=== PATIENT | female | born 1940 | race Caucasian/White ===

== ENCOUNTER 2017-03-04 15:34 | Inpatient (IN) | payer MEDICARE, MEDICAID ==
[~2017-03-04] VITALS: Ht 162.6 cm; Wt 109.0 kg
[2017-03-04] MEDS ORDERED: TRAZ-136 PO ×2 (15:59→18:21)
[2017-03-04] MEDS ORDERED: ATEN50TA2 PO ×2 (15:59→18:21)
[2017-03-04] MEDS ORDERED: TRAM50TA2 PO ×2 (15:59→18:21)
[2017-03-04] MEDS ORDERED: TRIA37.53 PO (15:59)
[2017-03-04] MEDS ORDERED: ALPR0.25 PO ×2 (15:59→18:21)
[2017-03-04] MEDS ORDERED: CYMB1CAP5 PO (15:59)
[2017-03-04] MEDS ORDERED: NITR0.4S14 PO (15:59)
[2017-03-04] MEDS ORDERED: CELE1CAP9 PO ×2 (16:00→18:21)
[2017-03-04] MEDS ORDERED: DULO1CAP3 PO (16:00)
[2017-03-04 17:22] LABS: MEAN CORPUSCULAR HEMOGLOBIN 27.4 pg (27.0-33.0); MEAN CORPUSCULAR HGB CONC 32.9 g/dl (32.0-36.5); MEAN CORPUSCULAR VOLUME 83.5 fl (80.0-96.0); RED CELL DISTRIBUTION WIDTH 13.7 % (11.5-14.5); WHITE BLOOD COUNT 7.4 K/mm3 (4.0-10.0)
[2017-03-04 17:51] LABS: METHADONE URINE NEGATIVE (NEGATIVE)
[2017-03-04 18:00] LABS: ALBUMIN 3.6 GM/DL (3.2-5.2); ALBUMIN/GLOBULIN RATIO 0.97 (1.00-1.93); ALKALINE PHOSPHATASE 83 U/L (45-117); ALT/SGPT 24 U/L (12-78); ANION GAP 7 MEQ/L (8-16); AST/SGOT 18 U/L (15-37); BILIRUBIN,DIRECT < 0.1 MG/DL (0.0-0.2); BILIRUBIN,TOTAL 0.3 MG/DL (0.2-1.0); BLOOD UREA NITROGEN 23 MG/DL (7-18); CALCIUM LEVEL 9.3 MG/DL (8.8-10.2); CARBON DIOXIDE LEVEL 29 MEQ/L (21-32); CHLORIDE LEVEL 104 MEQ/L (98-107); CREATININE FOR GFR 1.32 MG/DL (0.55-1.02); GLOMERULAR FILTRATION RATE 41.8 (>39); GLUCOSE, FASTING 107 MG/DL (83-110); POTASSIUM SERUM 4.8 MEQ/L (3.5-5.1); SODIUM LEVEL 140 MEQ/L (136-145); TOTAL PROTEIN 7.3 GM/DL (6.4-8.2)
[2017-03-04] MEDS ORDERED: TYLE500T78 PO (18:21)
[2017-03-04] MEDS ORDERED: [UNRECOGNIZED DRUG - OTHER] (18:21)
[2017-03-04] MEDS ORDERED: AZO95TAB PO (18:21)
[2017-03-04] MEDS ORDERED: CYMB60CA3 PO (18:21)
[2017-03-04] MEDS ORDERED: NITR4TASL SL (18:21)
[2017-03-04] MEDS ORDERED: CLOTR1CR TOP (18:21)
[2017-03-04] MEDS ORDERED: MAXZTAB PO (18:21)
[2017-03-04] MEDS ORDERED: ASPI1TAB PO (18:21)
[2017-03-04] MEDS ORDERED: DULO30CA PO (18:21)
[2017-03-04 20:18] VITALS: BP 162/78
[2017-03-04] MEDS ORDERED: MAGN500T5 PO (20:18)
[2017-03-04] MEDS ORDERED: CelecoXIB (CeleBREX) 100 MG CAP PO SCH (21:00)
[2017-03-04] MEDS ORDERED: LOTRISONE CREAM 15 GM (BETAMETH/CLOTRIMAZOLE) TOP PRN (21:15)
[2017-03-04] MEDS ORDERED: MAALOX 30 ML SUSP *UDC PO PRN (21:15)
[2017-03-04] MEDS ORDERED: NITROGLYCERIN 0.4 MG SUBL TABLET SL PRN (21:15)
[2017-03-04] MEDS ORDERED: MOM 30ML SUSPENSION UDC PO PRN (21:15)
[2017-03-04] MEDS ORDERED: DULoxetine 30 MG CAP (CYMBALTA) PO PRN (21:15)
[2017-03-04] MEDS ORDERED: traZODone 50 MG TAB PO PRN (21:15)
[2017-03-04] MEDS ORDERED: CLOTRIMAZOLE 1% TOPICAL CREAM 30GM TOP SCH (22:00)
[2017-03-04] MEDS: MAGNESIUM OXIDE 400 MG TAB (MAG-OX) PO SCH (22:35)
[2017-03-04] MEDS: DULoxetine 30 MG CAP (CYMBALTA) PO SCH (22:35)
[2017-03-04] MEDS: ALPRAZolam 0.25 MG TAB PO PRN (22:35)
[2017-03-04] MEDS: ATENOLOL 50 MG TAB PO SCH (22:36)
[2017-03-04] MEDS: traZODone 100 MG TAB PO SCH (22:36)
[2017-03-04] MEDS: MAXZIDE 75/50 TABLET PO SCH (22:39)
[2017-03-05] MEDS: traMADol 50 MG TAB PO PRN ×3 (01:06→21:53)
[2017-03-05] MEDS: ACETAMINOPHEN 500 MG TAB PO PRN ×3 (01:06→21:52)
[2017-03-05 06:31] VITALS: BP 134/82
[2017-03-05] MEDS: PHENAZOPYRIDINE 100 MG TAB PO PRN (07:02)
[2017-03-05 07:19] LABS: MEAN CORPUSCULAR VOLUME 81.7 fl (80.0-96.0); RED CELL DISTRIBUTION WIDTH 13.9 % (11.5-14.5); WHITE BLOOD COUNT 8.3 K/mm3 (4.0-10.0)
--- NOTE | 2017-03-05 07:55 | HPE ---
DATE OF ADMISSION: 03/04/2017 HISTORY OF THE PRESENT ILLNESS: Please refer to psychiatric history and evaluation for further details on this admission. This examination and history is intended for medical issues which may need treatment, followup, or consult on this 76-year-old female. ALLERGIES: CAFFEINE. PRIMARY CARE PROVIDER: Ann Marie Ac. SOCIAL HISTORY: She is . She does not drink alcohol. She does not smoke cigarettes. She does not use recreational drugs. PAST MEDICAL HISTORY: Anxiety, multijoint arthritis, restless legs, cystitis, hypertension. She had a cardiac catheterization, she states, showed only a slight blockage. PAST SURGICAL HISTORY: section, repair of vaginal-anal fistula. LABORATORY STUDIES: WBC 7.4, hemoglobin 12.5, hematocrit 38.1, platelets 37.1. Electrolytes normal. BUN and creatinine 23 and 1.32. Urine positive for benzodiazepines. HOME MEDICATIONS: - Tylenol 500 mg by mouth every 6 hours as needed for pain - alprazolam 0.25 mg by mouth four times a day as needed for anxiety - aspirin 81 mg by mouth daily - atenolol 50 mg by mouth nightly - clotrimazole - Lotrimin cream twice a day as needed for rash under breast, none currently - Cymbalta 60 mg by mouth nightly - triamterene hydrochlorothiazide, which is Maxzide-25; triamterene 37.5 one tablet by mouth nightly - Nitrostat 0.4 mg sublingual every 5 minutes times three as needed for chest pain - Tramadol 100 mg by mouth three times a day as needed for pain - trazodone 200 mg by mouth nightly - Celecoxib/Celebrex 200 mg by mouth nightly - magnesium oxide 500 mg by mouth nightly - Azo Tabs 190mg by mouth daily as needed for cystitis - Zicam Cold Remedy one nightly as needed for congestion REVIEW OF SYSTEMS: Ten-system review was done. Other than chronic pain, she had no medical complaints. PHYSICAL EXAMINATION: A 76-year-old cooperative female in no acute distress. Height 64 inches. Weight 110.4 kg. Body mass index (BMI) 41.8. Blood pressure 150/70, pulse 86, respirations 18, temperature 97.4. The patient is alert and oriented times three. Pupils are equal and reactive to light. Extraocular movements intact. Cornea and sclerae clear. Conjunctivae is normal. No facial asymmetry. Pharynx: Tongue and gums pink and moist. Tongue is midline. Neck is supple without lymphadenopathy. No thyromegaly. No goiter. Carotids 2+ without bruits. Chest is clear to auscultation without wheeze or retractions. Heart is regular. Abdomen benign. Bowel sounds are positive. Genital/Rectal: Not done. Extremities show equal strength, full range of motion. No cyanosis, clubbing or edema. Peripheral pulses equal and palpable bilaterally. Skin is warm and dry. IMPRESSION AND PLAN: Psychiatric plan per psychiatry. Multijoint arthritis. Continue tramadol and Tylenol for pain. Continue Azo for cystitis. Hypertension, stable. No acute medical issues. ADDENDUM: 03/05/2017 Her platelets were noted to be low at 27. Her aspirin and Celebrex will be held. We will recheck CBC. If it remains low, we will do a hematology referral.
[2017-03-05] MEDS: ALPRAZolam 0.25 MG TAB PO PRN ×2 (08:55→15:19)
--- NOTE | 2017-03-05 15:28 | MHHPE ---
DATE OF ADMISSION: 03/04/2017 LEGAL STATUS AT ADMISSION: Voluntary legal status. CHIEF COMPLAINT: "I have been feeling very depressed. I have not been like this in years." HISTORY OF THE PRESENT ILLNESS: A 76-year-old female with history of depression and bipolar type 2 disorder, admitted to our unit on a voluntary basis. According to the chart, the patient came to the emergency department to be evaluated for depression. The patient was making statements such as, "I'm trying to make it through." "I have not been like this in years." "I'm terrified of going back there again." The patient does not know any triggers for this severe and worsening depression other than her sister moved out of state, but the patient does not believe that this has been stressful. The patient says that she has been "walking nightmare." It's paralyzing and terrible." The patient's brother committed suicide when he was 28 . The patient reports low energy, dysphoria, being fearful with poor concentration and low self-esteem. During the interview, there is no evidence of psychotic symptoms. The patient says that she cannot sleep at nighttime, says that she falls asleep between sandhya and 8 o'clock. The patient reports a history of hypomania in which she felt self-confident, very creative, everything worked, she cannot see anything negative and kind of misses this hypomanic episode. The patient denies that these symptoms have caused any problems in the past and reports, "I kind of miss them. " The patient states that the depressive episodes are the worst. They can last for months and they impair her quality of life significantly. During the interview, there is no evidence of psychosis. No auditory or visual hallucinations or delusions. PSYCHIATRIC REVIEW OF SYMPTOMS: Depression and other mood disorder. The patient reports depression, insomnia, anhedonia, hopelessness, low energy, psychomotor retardation. SUBSTANCE USE DISORDER: The patient answers negative to each questioner. ANXIETY DISORDER: The patient has anxiety but denies panic episodes or agoraphobia. Patient denies obsessive-compulsive symptoms, such as washing hands repeatedly or checking things over and over. SOMATIZATION DISORDER: Screening for pain, conversion, gastrointestinal (GI) and sexual symptoms are negative. EATING DISORDER: Screening for dieting, use of laxatives, eating in binges is negative. DEMENTIA AND COGNITIVE DISORDER. Screening for short and long-term memory, orientation and general information are negative for cognitive disorder. PSYCHOTIC DISORDER: No evidence of delusions, paranoia, grandiosity or jew preoccupation. No hallucinations. No looseness of associations. PAST MEDICAL HISTORY: The patient states that she has been diagnosed with fibromyalgia, osteoarthritis, sinus headaches, interstitial cystitis, hypertension, angina and coronary artery disease. PAST PSYCHIATRIC HISTORY: Patient reports that she has been diagnosed with bipolar disorder and depression. FAMILY HISTORY: The patient reports that her mother's side of the family has tendency to suffer from mood disorder and has a brother who was diagnosed with schizophrenia who committed suicide at age 28. 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 PHYSICAL EXAM: As per physician regional administrative assistant. LABS AT ADMISSION: CBC is unremarkable except the finding of low platelet count of 37,000. CMP is unremarkable, except BUN of 23, creatinine of 1.32. Urine drug screen (UDS) was positive for benzodiazepines, rest negative. Blood alcohol level was negative. MENTAL STATUS EXAMINATION: The patient is dressed in [facility]. The patient is cooperative. Speech is soft and monotone, has fair eye contact. Mood is depressed and anxious. Affect is restricted. The patient is oriented to time, place, person and situation. Maintains attention and concentration fairly. Instant recall, recent and remote memory are fair. Thought processes are chronological and goal directed. The patient does not have auditory or visual hallucinations. The patient does not have paranoid, persecutory, somatic, grandiose or jew delusions. The patient denies suicidal or homicidal ideation. Judgment and insight are limited. DIAGNOSIS: AXIS I: Bipolar, type 2, depressive episode. AXIS II: Deferred. AXIS III: Fibromyalgia, hypertension, coronary artery disease, status post angina pectoris, osteoarthritis, sinus headaches, interstitial cystitis and peripheral neuropathy. PLAN: The patient was admitted on a 9.39 legal status. Complete history was obtained. With her permission, family will be contacted and database will be expanded. Her medication regimen will be reviewed and changed accordingly. She will be provided with protected environment. She will be treated with individual , group and milieu therapy. She will also receive supportive psychoeducation. Discharge planning will commence immediately. Length of stay will be between 7 and 10 days. Outpatient followup will be strongly recommended. The treatment plan will focus initially on depression and ineffective coping. MTDD
[2017-03-05 18:00] VITALS: BP 120/70
[2017-03-05] MEDS: traZODone 100 MG TAB PO SCH (21:51)
[2017-03-05] MEDS: MAXZIDE 75/50 TABLET PO SCH (21:52)
[2017-03-05] MEDS: MAGNESIUM OXIDE 400 MG TAB (MAG-OX) PO SCH (21:52)
[2017-03-05] MEDS: DULoxetine 30 MG CAP (CYMBALTA) PO SCH (21:52)
[2017-03-05] MEDS: ATENOLOL 50 MG TAB PO SCH (21:53)
[2017-03-05] MEDS: lamoTRIgine 25 MG TAB PO SCH (21:53)
[2017-03-06] MEDS: ALPRAZolam 0.25 MG TAB PO PRN ×3 (04:28→18:25)
[2017-03-06] MEDS: traMADol 50 MG TAB PO PRN ×2 (04:32→11:37)
[2017-03-06] MEDS: ACETAMINOPHEN 500 MG TAB PO PRN ×2 (04:38→11:36)
[2017-03-06 06:10] VITALS: BP 148/88
[2017-03-06] MEDS ORDERED: PREVNAR 13 VACCINE SYRINGE (CPT CODE:90670) IM ONE (09:00)
[2017-03-06] MEDS: PHENAZOPYRIDINE 100 MG TAB PO PRN (09:29)
--- NOTE | 2017-03-06 16:59 | IPN ---
DATE: 03/06/2017 A 76-year-old female with history of depression and bipolar type 2, who was admitted on voluntary basis for treatment of depression. SUBJECTIVE: "I feel betrayed." OBJECTIVE: The patient has changed her mind and she has written a request for discharge. The patient has been told that before discharge, we need to make sure that everything is in order and there are no concerning symptoms of depression or suicidal ideation in the context of being over the weekend. Her primary psychiatrist is not here and the team and social workers are not present. The patient is frustrated and somewhat angry because she has not been able to leave the hospital right away. I discussed the treatment with the patient this morning and tried to convince her to stay at least to achieve minimal benefit, but she has declined my offer. She is only focused on discharge. She wanted to be placed on Effexor and had her Cymbalta tapered down. I offered to do so, but she said that she prefers to wait to see Dr. Brooks. MENTAL STATUS EXAMINATION: The patient was difficult to evaluate today because she is focused on discharge issues only. She was frustrated and somewhat irritable. Has poor eye contact. Speech is normal in rate, volume and articulation. Mood is depressed and anxious. Affect is restricted. There is no evidence of psychosis. No auditory or visual hallucinations or delusions. The patient continued to deny suicidal or homicidal ideations. Insight and judgment are poor. ASSESSMENT: Depression. PLAN: The patient has declined my offer of changing her psychiatric treatment, so she will continue taking: - Cymbalta 60 mg by mouth at bedtime plus 30 mg by mouth by mouth every evening as needed for pain - trazodone 200 mg by mouth at bedtime - Xanax 0.25 mg by mouth four times a day as needed for anxiety - Lamictal 25 mg by mouth at bedtime
[2017-03-06 18:29] VITALS: BP 140/73
[2017-03-06] MEDS: MAGNESIUM OXIDE 400 MG TAB (MAG-OX) PO SCH (21:19)
[2017-03-06] MEDS: MAXZIDE 75/50 TABLET PO SCH (21:19)
[2017-03-06] MEDS: lamoTRIgine 25 MG TAB PO SCH (21:20)
[2017-03-06] MEDS: DULoxetine 30 MG CAP (CYMBALTA) PO SCH (21:20)
[2017-03-06] MEDS: ATENOLOL 50 MG TAB PO SCH (21:21)
[2017-03-06] MEDS: traZODone 100 MG TAB PO SCH (23:25)
[2017-03-07] MEDS: ACETAMINOPHEN 500 MG TAB PO PRN ×2 (00:40→09:16)
[2017-03-07] MEDS: traMADol 50 MG TAB PO PRN ×2 (00:41→09:15)
[2017-03-07] MEDS: ALPRAZolam 0.25 MG TAB PO PRN ×4 (02:54→23:43)
[2017-03-07 06:43] VITALS: BP 179/81
[2017-03-07 07:55] LABS: MEAN CORPUSCULAR HEMOGLOBIN 27.1 pg (27.0-33.0); MEAN CORPUSCULAR HGB CONC 32.9 g/dl (32.0-36.5); MEAN CORPUSCULAR VOLUME 82.4 fl (80.0-96.0); WHITE BLOOD COUNT 8.9 K/mm3 (4.0-10.0)
[2017-03-07 08:14] LABS: CALCIUM LEVEL 8.7 MG/DL (8.8-10.2); CREATININE FOR GFR 1.31 MG/DL (0.55-1.02); GLOMERULAR FILTRATION RATE 42.1 (>39); POTASSIUM SERUM 3.8 MEQ/L (3.5-5.1)
[2017-03-07 12:06] VITALS: BP 120/60
[2017-03-07] MEDS: IBUPROFEN 600 MG TAB PO PRN ×2 (14:06→23:41)
[2017-03-07] MEDS: PHENAZOPYRIDINE 100 MG TAB PO PRN (14:08)
--- NOTE | 2017-03-07 16:01 | MHIPNPDOC ---
[facility] Progress Note Progress Note DATE OF SERVICE: 03/07/17 INTERVAL HISTORY: Medication Side effects: Patient reports she has been feeling increasingly depressed on her usual dose of Cymbalta and she would like to change her medications. Behavior: Patient was reported a little bit agitated on Tuesday, March 06 because she didn't agree with the hospitalization policies. Group Attendance: She has not been attending groups and she justifies this because she says that some of the people that attend groups are more depressed or have more problems than her and she needs to shield herself from all the negative input. Psychiatric Symptom change: According to previous notes there has not been major symptom change. VITAL SIGNS: See below. NEW TEST RESULTS: See below CURRENT MEDICATIONS: See below. MENTAL STATUS EXAMINATION: General: Alert, cooperative, with good eye contact, good hygiene Speech: Circumstantial and tangential Thought processes: Disorganized Thought content: Perseverates about how her needs are not being addressed at the inpatient mental health unit as she was expecting a different type of room, with labs on her night stand, where she will be able to connect to the Internet , her cell phone or watch TV. She goes on and on about how she feels that she is in snf. (Patient is reacting like this because she has grandiose delusions) Abstract reasoning, and computation: Limited due to patient's altered mental status Description of associations: Loose Description of abnormal or psychotic thoughts: Denies auditory or visual hallucinations, denies suicidal or homicidal thoughts but admits that she has abated ego and that she is a lynn of her family. She has grandiose delusions. Judgment: Poor Insight: Poor Orientation: Oriented 3 Recent and remote memory: Fair Attention span and concentration: Fair Fund of knowledge: Unable to assess Mood: "I am angry, I feel disappointed" Affect: Angry, irritable DIAGNOSES: 1. Bipolar 2 disorder, mixed episode ASSESSMENT: Patient is very irritable and very upset because she hasn't receive the treatment that she expected, her expectations are quite unrealistic for a psychiatric [place]. She is upset because they searched her purse, because she was not even private room, because she is not able to stay up all night, because she doesn't have a lot on her night table. She has a sense of entitlement and grandiose delusions but at the same time she reports feeling depressed. Patient will need medication adjustments and Abilify has been added, milligrams by mouth daily at bedtime as a booster for her current antidepressant, Cymbalta 60 milligrams by mouth daily. MANAGEMENT PLAN: Medications: Abilify 2 mg by mouth daily at bedtime was added to her regimen and tramadol was discontinued because tramadol has a very negative interaction with antidepressants, with a potential risk for serotonin syndrome. Psychotherapy: Will be encouraged to attend groups. Social: Will be encouraged to interact with peers and staff Misc: None Disposition: Patient will need to remain at the inpatient mental health unit until her symptoms are controlled and appropriate medication is found control. She will need to address her personal issues psychotherapy attending groups and upon discharge she will need a therapist besides her psychiatrist TIME SPENT: 50 minutes. Vital Signs Vital Signs Date Time Temp Pulse Resp B/P (MAP) Pulse Ox O2 Delivery O2 Flow Rate FiO2 03/07/17 12:06 120/60 (80) 03/07/17 10:10 16 03/07/17 06:43 97.3 80 03/05/17 06:31 Room Air 03/04/17 19:33 93 Laboratory Data 24H Labs Laboratory Tests 2 03/07/17 07:25: Anion Gap 9, Glomerular Filtration Rate 42.1, Blood Urea Nitrogen 31H, Creatinine 1.31H, Sodium Level 132#L, Potassium Level 3.8#, Chloride Level 96L, Carbon Dioxide Level 27, Calcium Level 8.7L CBC/BMP Laboratory Tests 03/07/17 07:25 Red Blood Count 4.72, Mean Corpuscular Volume 82.4, Mean Corpuscular Hemoglobin 27.1, Mean Corpuscular Hemoglobin Concent 32.9, Red Cell Distribution Width 14.0 , Calcium Level 8.7 L Current Medications Current Medications Acetaminophen (Tylenol Tab) 500 mg Q6HP PRN PO PAIN Last administered on t 09:16; Start 03/04/17 at 21:15; Stop 04/03/17 at 21:14 Al Hydrox/Mg Hydrox/Simethicone (Mylanta) 30 ml Q4HP PRN PO HEARTBURN/ INDIGESTION; Start 03/04/17 at 21:15; Stop 04/03/17 at 21:14 Alprazolam (Xanax) 0.25 mg QIDP PRN PO ANXIETY Last administered on 03/07/17 09 :16; Start 03/04/17 at 21:15; Stop 03/11/17 at 21:14 Aripiprazole (AbiLIFY) 2 mg QHS PO ; Start 03/07/17 at 21:00; Stop 04/06/17 at 20: 59 Atenolol (Tenormin) 50 mg QHS PO Last administered on 03/06/17 21:21; Start at 21:00; Stop 04/03/17 at 20:59 Betamethasone/ Clotrimazole (Lotrisone Cream) 1 dose DAILYPRN PRN TOP RASH; Start 03/04/17 at 21:15; Stop 04/03/17 at 21:14; Status UNV Celecoxib (CeleBREX) 200 mg QHS PO ; Start 03/04/17 at 21:00; Stop 04/03/17 at 20:59; Status Cancel Clotrimazole (Lotrimin) 1 dose DAILYPRN TOP ; Start 03/04/17 at 22:00; Stop at 21:59 Duloxetine HCl (Cymbalta) 30 mg QPMP PRN PO PAIN; Start 03/04/17 at 21:15; Stop 04/03/17 at 21:14 Duloxetine HCl (Cymbalta) 60 mg QHS PO Last administered on 03/06/17 21:20; Start 03/04/17 at 21:00; Stop 04/03/17 at 20:59 Home Med (Med Rec Complete!) ASDIRECTED XX ; Start 03/04/17 at 18:30; Stop at 18:30; Status DC Ibuprofen (Advil) 600 mg Q6HP PRN PO MODERATE PAIN (PS 5-7) Last administered on 03/07/17 14:06; Start 03/07/17 at 12:45; Stop 04/06/17 at 12:44 Lamotrigine (LaMICtal) 25 mg QHS PO Last administered on 03/06/17 21:20; Start 03/05/17 at 21:00; Stop 03/07/17 at 12:32; Status DC Magnesium Hydroxide (Milk Of Magnesia) 30 ml DAILYPRN PRN PO CONSTIPATION; Start 03/04/17 at 21:15; Stop 04/03/17 at 21:14 Magnesium Oxide (Mag-Ox) 400 mg QHS PO Last administered on 03/06/17 21:19; Start 03/04/17 at 21:00; Stop 04/03/17 at 20:59 Nitroglycerin (Nitrostat (1/ 150)) 0.4 mg Q5MP PRN SL CHEST PAIN; Start at 21:15; Stop 04/03/17 at 21:14 Phenazopyridine HCl (Pyridium) 200 mg DAILYPRN PRN PO UTI Last administered on 03/07/17 14:08; Start 03/04/17 at 21:15; Stop 04/03/17 at 21:14 Tramadol HCl (Ultram) 100 mg TIDP PRN PO pain Last administered on 03/07/17 09: 15; Start 03/04/17 at 21:15; Stop 03/07/17 at 12:44; Status DC Trazodone HCl (Desyrel) 50 mg QHSP PRN PO INSOMNIA; Start 03/04/17 at 21:15; Stop 04/03/17 at 21:14; Status UNV Trazodone HCl (Desyrel) 200 mg QHS PO Last administered on 03/06/17 23:25; Start 03/04/17 at 21:00; Stop 04/03/17 at 20:59 Triamterene/HCTZ (Maxzide 75/50 Mg) 0.5 ea QPM PO Last administered on 21:19; Start 03/04/17 at 21:00; Stop 04/03/17 at 20:59 Allergies Coded Allergies: Caffeine (Unverified Adverse Reaction, Unknown, IRRITABILITY, 03/04/17) GELA ARREOLA MD Mar 07, 2017 16:01
[2017-03-07 18:02] VITALS: BP 139/63
[2017-03-07] MEDS ORDERED: ARIPiprazole 2 MG TAB PO SCH (21:00)
[2017-03-07] MEDS: MAGNESIUM OXIDE 400 MG TAB (MAG-OX) PO SCH (22:12)
[2017-03-07] MEDS: DULoxetine 30 MG CAP (CYMBALTA) PO SCH (22:14)
[2017-03-07] MEDS: MAXZIDE 75/50 TABLET PO SCH (22:14)
[2017-03-07] MEDS: ATENOLOL 50 MG TAB PO SCH (22:15)
[2017-03-07] MEDS: traZODone 100 MG TAB PO SCH (23:41)
[2017-03-08] MEDS: ALPRAZolam 0.25 MG TAB PO PRN ×3 (06:13→22:10)
[2017-03-08] MEDS: IBUPROFEN 600 MG TAB PO PRN ×3 (06:14→22:10)
[2017-03-08 06:30] VITALS: BP 167/76
[2017-03-08] MEDS ORDERED: CLOTRIMAZOLE 1% TOPICAL CREAM 30GM TOP PRN (06:30)
[2017-03-08 07:12] LABS: BASO # 0.1 K/mm3 (0.0-0.2); BASO % 0.9 % (0.0-1.0); EOS # 0.3 K/mm3 (0.0-0.50); EOS % 3.5 % (0.0-3.0); LARGE UNSTAINED CELL # 0.4 K/mm3 (0.0-0.4); LARGE UNSTAINED CELL % 3.7 % (0.0-4.0); LYMPH # 3.1 K/mm3 (1.5-4.5); LYMPH % 32.5 % (24.0-44.0); MEAN CORPUSCULAR HEMOGLOBIN 27.4 pg (27.0-33.0); MEAN CORPUSCULAR HGB CONC 33.3 g/dl (32.0-36.5); MEAN CORPUSCULAR VOLUME 82.1 fl (80.0-96.0); MONO # 0.8 K/mm3 (0.0-0.8); NEUTROPHILS % 51.4 % (36.0-66.0); RED CELL DISTRIBUTION WIDTH 13.7 % (11.5-14.5); WHITE BLOOD COUNT 9.6 K/mm3 (4.0-10.0)
[2017-03-08 07:18] LABS: PLATELET COUNT, AUTOMATED 66 k/mm3 (150-450)
--- NOTE | 2017-03-08 10:26 | MHIPNPDOC ---
[facility] Progress Note Progress Note DATE OF SERVICE: 03/08/17 HISTORY: day 5 of admission. Pt admitted for depression and medication change. VITAL SIGNS: See below. NEW TEST RESULTS: na CURRENT MEDICATIONS: See below. MENTAL STATUS EXAMINATION: Patient is a 76 year old female, who does not look her stated age. She is medium frame, light of hair, makes good eye contact and engages easily. Speech: Is clear and spontaneous Language skills are excellent, a bit verbally overproductive Thought processes including: goal directed. circumstantial in explaining her situation. Thought content: medications/appropriate Abstract reasoning, and computation: good. Description of associations: good. Description of abnormal or psychotic thoughts: no evidence of psychosis illicited, pt states she never has an issue with suicidal or homicidal thoughts. Judgment: good Insight: fair. Orientation: well oriented in all spheres. Recent and remote memory: appears intact Attention span and concentration: adequate Fund of knowledge: full. Mood: "upset". Affect: calm. DIAGNOSES: AXIS I: Bipolar, type 2, depressive episode. AXIS II: Deferred. AXIS III: Fibromyalgia, hypertension, coronary artery disease, status post angina pectoris, osteoarthritis, sinus headaches, interstitial cystitis and peripheral neuropathy. ASSESSMENT:pt felt that her conversation this morning with staff was more adversarial than she would have liked. She refused Abilify last night after reading the print out with the potential side effects. Discussed this with pt as things that "MAY" happen, not things that "WILL" happen. She remains unconvinced. She has tried Wellbutrin in the past and it did not suit her at all. She stated it caused side effects. We decided that given her dx of fibromyalgia and the fact that she was not afaid of Cymbalta and it had never been maximized at 60 mg bid pt was in agreement to raising the Cymbalta dose and stopping Abilify all together. She denies feelings of valentino (says it has been years since she was manic) and she denied hypomania though she does live most of her life in the evening hours between 4 a.m. and 4 p.m. Pt feels well supported by family and friends. 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 Pt was satisfied by writers recommendations. She states she had worked with Dr. Nguyen for 17-20 years and they have a very trusting relationship. She verbalized when she was admitted she immediately knew it was mistake as she observed staff going through her purse without her being present. She added that her trigger for depression - $ 9000 [email or web address] bill - had been reduced to $4500 by the [employer] and that all she had to pay was $10 a month in addition to the regular monthly bill. Now that is resolved she feels much less depressed and wants to go home. She reports less sleep here as she is unable to keep her usual schedule or engage in the relaxing activities of painting and writing that she enjoys. She also enjoys gardening most days. Pt is aware that the tramadol is discontinued and why. It was explained to her that raising the Cymbalta to the maximum dose would be of greater benefit not only to her depression but to her pain. She realizes it may take 3-4 weeks to see this benefit. MANAGEMENT PLAN: continue close observation. discontinue Abilify. Increase Cymbalta to 60 mg bid for at least one month. A trial of Lamictal may benefit patient who tends to cycle into depression more frequently than hypomania. Encourage participation in therapeutic milieu. TIME SPENT: 30 minutes. Vital Signs Vital Signs Date Time Temp Pulse Resp B/P (MAP) Pulse Ox O2 Delivery O2 Flow Rate FiO2 03/08/17 06:30 97.5 65 18 167/76 (106) 03/05/17 06:31 Room Air 03/04/17 19:33 93 Laboratory Data 24H Labs Laboratory Tests 2 03/08/17 06:37: White Blood Count 9.6, Red Blood Count 4.67, Hemoglobin 12.8, Hematocrit 38.3, Mean Corpuscular Volume 82.1, Mean Corpuscular Hemoglobin 27.4, Mean Corpuscular Hemoglobin Concent 33.3, Red Cell Distribution Width 13.7, Platelet Count 66L, Neutrophils (%) (Auto) 51.4, Lymphocytes (%) (Auto) 32.5, Monocytes ( %) (Auto) 8.0H, Eosinophils (%) (Auto) 3.5H, Basophils (%) (Auto) 0.9, Neutrophils # (Auto) 5.0, Lymphocytes # (Auto) 3.1, Monocytes # (Auto) 0.8, Eosinophils # (Auto) 0.3, Basophils # (Auto) 0.1, Large Unclassified Cells % 3.7 , Large Unclassified Cells # 0.4 CBC/BMP Laboratory Tests 03/08/17 06:37 Red Blood Count 4.67, Mean Corpuscular Volume 82.1, Mean Corpuscular Hemoglobin 27.4, Mean Corpuscular Hemoglobin Concent 33.3, Red Cell Distribution Width 13.7 , Neutrophils (%) (Auto) 51.4, Lymphocytes (%) (Auto) 32.5, Monocytes (%) (Auto ) 8.0 H, Eosinophils (%) (Auto) 3.5 H, Basophils (%) (Auto) 0.9, Neutrophils # ( Auto) 5.0, Lymphocytes # (Auto) 3.1, Monocytes # (Auto) 0.8, Eosinophils # (Auto ) 0.3, Basophils # (Auto) 0.1 Current Medications Current Medications Acetaminophen (Tylenol Tab) 500 mg Q6HP PRN PO PAIN Last administered on 09:16; Start 03/04/17 at 21:15; Stop 04/03/17 at 21:14 Al Hydrox/Mg Hydrox/Simethicone (Mylanta) 30 ml Q4HP PRN PO HEARTBURN/ INDIGESTION; Start 03/04/17 at 21:15; Stop 04/03/17 at 21:14 Alprazolam (Xanax) 0.25 mg QIDP PRN PO ANXIETY Last administered on 03/08/17 06 :13; Start 03/04/17 at 21:15; Stop 03/11/17 at 21:14 Aripiprazole (AbiLIFY) 2 mg QHS PO ; Start 03/07/17 at 21:00; Stop 04/06/17 at 20: 59 Atenolol (Tenormin) 50 mg QHS PO Last administered on 03/07/17 22:15; Start at 21:00; Stop 04/03/17 at 20:59 Betamethasone/ Clotrimazole (Lotrisone Cream) 1 dose DAILYPRN PRN TOP RASH; Start 03/04/17 at 21:15; Stop 04/03/17 at 21:14; Status UNV Celecoxib (CeleBREX) 200 mg QHS PO ; Start 03/04/17 at 21:00; Stop 04/03/17 at 20:59; Status Cancel Clotrimazole (Lotrimin) 1 dose DAILYPRN TOP ; Start 03/04/17 at 22:00; Stop 03/08 at 06:31; Status DC Clotrimazole (Lotrimin) 1 dose DAILYPRN PRN TOP RASH; Start 03/08/17 at 06:30; Stop 04/07/17 at 06:29 Duloxetine HCl (Cymbalta) 30 mg QPMP PRN PO PAIN; Start 03/04/17 at 21:15; Stop 04/03/17 at 21:14 Duloxetine HCl (Cymbalta) 60 mg QHS PO Last administered on 03/07/17 22:14; Start 03/04/17 at 21:00; Stop 04/03/17 at 20:59 Home Med (Med Rec Complete!) ASDIRECTED XX ; Start 03/04/17 at 18:30; Stop at 18:30; Status DC Ibuprofen (Advil) 600 mg Q6HP PRN PO MODERATE PAIN (PS 5-7) Last administered on 03/08/17 06:14; Start 03/07/17 at 12:45; Stop 04/06/17 at 12:44 Lamotrigine (LaMICtal) 25 mg QHS PO Last administered on 03/06/17 21:20; Start 03/05/17 at 21:00; Stop 03/07/17 at 12:32; Status DC Magnesium Hydroxide (Milk Of Magnesia) 30 ml DAILYPRN PRN PO CONSTIPATION; Start 03/04/17 at 21:15; Stop 04/03/17 at 21:14 Magnesium Oxide (Mag-Ox) 400 mg QHS PO Last administered on 03/07/17 22:12; Start 03/04/17 at 21:00; Stop 04/03/17 at 20:59 Nitroglycerin (Nitrostat (1/ 150)) 0.4 mg Q5MP PRN SL CHEST PAIN; Start at 21:15; Stop 04/03/17 at 21:14 Phenazopyridine HCl (Pyridium) 200 mg DAILYPRN PRN PO UTI Last administered on 03/07/17 14:08; Start 03/04/17 at 21:15; Stop 04/03/17 at 21:14 Tramadol HCl (Ultram) 100 mg TIDP PRN PO pain Last administered on 03/07/17 09: 15; Start 03/04/17 at 21:15; Stop 03/07/17 at 12:44; Status DC Trazodone HCl (Desyrel) 50 mg QHSP PRN PO INSOMNIA; Start 03/04/17 at 21:15; Stop 04/03/17 at 21:14; Status UNV Trazodone HCl (Desyrel) 200 mg QHS PO Last administered on 03/07/17 23:41; Start 03/04/17 at 21:00; Stop 04/03/17 at 20:59 Triamterene/HCTZ (Maxzide 75/50 Mg) 0.5 ea QPM PO Last administered on 22:14; Start 03/04/17 at 21:00; Stop 04/03/17 at 20:59 Allergies Coded Allergies: Caffeine (Unverified Adverse Reaction, Unknown, IRRITABILITY, 03/04/17) Evy Ferguson Mar 08, 2017 10:26
[2017-03-08] MEDS: DULoxetine 30 MG CAP (CYMBALTA) PO SCH ×2 (10:33→21:20)
[2017-03-08] MEDS: PHENAZOPYRIDINE 100 MG TAB PO PRN (16:26)
[2017-03-08 18:00] VITALS: BP 132/80
[2017-03-08 21:19] VITALS: BP 172/94
[2017-03-08] MEDS: ATENOLOL 50 MG TAB PO SCH (21:19)
[2017-03-08] MEDS: MAGNESIUM OXIDE 400 MG TAB (MAG-OX) PO SCH (21:20)
[2017-03-08] MEDS: traZODone 100 MG TAB PO SCH (21:20)
[2017-03-08] MEDS: MAXZIDE 75/50 TABLET PO SCH (21:20)
[2017-03-09 06:51] VITALS: BP 148/76
[2017-03-09] MEDS: ALPRAZolam 0.25 MG TAB PO PRN ×2 (07:16→13:12)
[2017-03-09] MEDS: IBUPROFEN 600 MG TAB PO PRN ×2 (07:17→13:13)
[2017-03-09] MEDS: DULoxetine 30 MG CAP (CYMBALTA) PO SCH (09:16)
[2017-03-09] MEDS ORDERED: TRAZ10TA PO (11:41)
--- NOTE | 2017-03-09 17:56 | MHDSPDOC ---
[facility] Discharge Summary Discharge Summary DATE OF ADMISSION: Mar 04, 2017 at 16:40 DATE OF DISCHARGE: Mar 09, 2017 at 16:25 DISCHARGE DIAGNOSES: 1. Bipolar 2 disorder, depressive episode REASON FOR ADMISSION: Patient came to the emergency room on March 04 and reported feeling increasingly depressed for the last couple of days. She expressed she worries because she has been severely depressed before and she didn't want to "get there". She denied any triggers, other than one of her sister's moving out of state and she said that she had one brother does not have committed suicide several years ago. She follows with Dr. Brooks at the outpatient clinic and she felt her medications were not working properly anymore , she requested them to be adjusted. CONSULTANTS INVOLVED: None TREATMENT AND PROGRESS ON THE UNIT : Patient has slight improvement at the inpatient mental health unit, she had her medications adjusted, although she didn't like this adjustment. She was left on 60 mg by mouth daily on Cymbalta at 30 mg by mouth daily at bedtime when necessary for insomnia of the same medication. Because she wanted to spend a lot of time at the inpatient mental health unit while the Cymbalta was being tapered, Abilify was added as a booster to her antidepressant, but she reported yesterday she didn't feel well with Abilify so the medications were changed again to Cymbalta 60 mg by mouth twice a day and Abilify was discontinued. HOSPITAL COURSE: Patient complains several times about not having a room for her own, about having to share the bathroom, about not having a lamp on her night table, about staff searching her purse when she was admitted. She was irritable and unhappy because she didn't want to comply with certain regulations like for example having to sleep at night and get up during the morning hours because she was used to work at night. 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 This senior grant writer explained to her this was not possible here because her some other people around but it was hard for her to accept this type of rules. Today she was noticed to be in better spirits, more cooperative, less irritable and happy to go home, because she wanted to be discharged and since she was not suicidal, not homicidal and not psychotic it was considered that she was safe to go home. DISCHARGE ASSESSMENT: Patient was stable, not a danger to self or others, not homicidal, not suicidal, not psychotic. MENTAL STATUS EXAMINATION ON DISCHARGE: Patient is a 76 year old female, with good eye contact, cooperative, dressed in hospital clothes Speech: Circumstantial Language skills are very good Thought processes including: Goal directed Thought content: Regarding medication adjustment. Abstract reasoning, and computation: good. Description of associations: Not loose Description of abnormal or psychotic thoughts: Denies homicidal or suicidal ideation, denies auditory or visual hallucinations, denies thought delusions but she has grandiose delusions although subtle Judgment: Improved Insight: Improved Orientation: Oriented 3 Recent and remote memory: appears intact Attention span and concentration: adequate Fund of knowledge: full. Mood: "upset". Affect: Slightly irritable DIAGNOSES: AXIS I: Bipolar 2 disorder, depressive episode MEDICATIONS ON DISCHARGE: - Cymbalta 60 mg by mouth twice a day for depression and 30 mg by mouth daily at bedtime when necessary for sleep. -Trazodone 200 mg by mouth daily at bedtime for for insomnia. PLAN/FOLLOWUP ARRANGEMENTS: Patient will follow up at the outpatient clinic with Dr. Brooks The amount of time spent in the coordination of care for this patient was approximately 30 minutes. Vital Signs/I&Os Vital Signs Date Time Temp Pulse Resp B/P (MAP) Pulse Ox O2 Delivery O2 Flow Rate FiO2 03/09/17 06:51 97.9 82 18 148/76 (100) Room Air 03/04/17 19:33 93 Medications Scheduled (Celecoxib) 200 Mg Cap, 200 MG PO QPM, (Reported) Aspirin (Aspirin 81) 81 Mg Tab, 81 MG PO DAILY, (Reported) Atenolol (Atenolol) 50 Mg Tab, 50 MG PO QPM, (Reported) Duloxetine Hcl (Cymbalta) 60 Mg Cap, 60 MG PO QPM, (Reported) Hydrochlorothiazide W/Triamter (Maxzide-25 37.5-25 mg) 1 Tab Tab, 1 TAB PO QPM, (Reported) Magnesium Oxide (Magnesium) 500 Mg Tab, 500 MG PO QHS for supplement, (Reported) Trazodone HCl (Trazodone HCl) 100 Mg Tab, 200 MG PO QHS, (Reported) PT BEDTIME IS 0400 Trazodone HCl (Trazodone HCl) 100 Mg Tab, 200 MG PO QHS for INSOMNIA, #14 Scheduled PRN Acetaminophen (Tylenol Extra Strength) 500 Mg Tab, 500 MG PO Q6H PRN for PAIN, ( Reported) TAKES TOGETHER WITH TRAMADOL Alprazolam (Alprazolam) 0.25 Mg Tab, 0.25 MG PO QID PRN for ANXIETY, (Reported) Clotrimazole (Lotrimin) 1 Dose/30 Gm Cream, 1 DOSE TOP DAILY PRN for RASH, ( Reported) Duloxetine Hcl (Cymbalta) 30 Mg Cap, 30 MG PO QPM PRN for PAIN, (Reported) TAKES WITH 60MG NEEDED Nitroglycerin (Nitrostat) 0.4 Mg Subl, 0.4 MG SL Q5MP PRN for CHEST PAIN, ( Reported) Phenazopyridine HCl (Azo Tabs) 95 Mg Tab, 190 MG PO DAILY PRN for UTI, (Reported ) Allergies Coded Allergies: Caffeine (Unverified Adverse Reaction, Unknown, IRRITABILITY, 03/04/17) GELA ARREOLA MD Mar 09, 2017 17:56
== END 2017-03-09 16:25 | disposition home or self-care (01) | DRG 885 ==
LOC: M ED 15:34 → M ED INP 16:40 → M PSY 20:10
PROVIDERS: ADMIT Psychiatry & Neurology Psychiatry; ATTEND Psychiatry & Neurology Psychiatry
DX: F31.81 Bipolar II disorder (principal); G25.81 Restless legs syndrome; I10 Essential (primary) hypertension; N30.90 Cystitis, unspecified without hematuria; M19.90 Unspecified osteoarthritis, unspecified site; Z79.82 Long term (current) use of aspirin; Z79.899 Other long term (current) drug therapy; Z88.8 Allergy status to other drugs, medicaments and biological substances

== ENCOUNTER 2017-05-16 16:31 | Emergency (ER) | payer MEDICARE, MEDICAID ==
[~2017-05-16 16:31] MED LIST: ALPR0.25 PO; ASPI1TAB PO; ATEN50TA2 PO; AZO95TAB PO; CELE1CAP9 PO; CLOTR1CR TOP; CYMB1CAP5 PO; CYMB60CA3 PO; DULO1CAP3 PO; DULO30CA PO; MAGN500T5 PO; MAXZTAB PO; NITR0.4S14 PO; NITR4TASL SL; TRAM50TA2 PO; TRAZ-136 PO; TRAZ10TA PO; TRIA37.53 PO; TYLE500T78 PO; [UNRECOGNIZED DRUG - OTHER]
[2017-05-16] MEDS ORDERED: ASPIRIN 81 MG CHEW TABLET PO ONE (16:45)
[2017-05-16 17:12] LABS: EOS # 0.1 K/mm3 (0.0-0.50); EOS % 2.3 % (0.0-3.0); LARGE UNSTAINED CELL # 0.2 K/mm3 (0.0-0.4); LARGE UNSTAINED CELL % 3.4 % (0.0-4.0); LYMPH # 1.6 K/mm3 (1.5-4.5); LYMPH % 31.1 % (24.0-44.0); MEAN CORPUSCULAR HGB CONC 33.3 g/dl (32.0-36.5); MEAN CORPUSCULAR VOLUME 83.9 fl (80.0-96.0); MONO # 0.3 K/mm3 (0.0-0.8); MONO % 5.7 % (0.0-5.0); NEUTROPHILS # 2.9 K/mm3 (1.8-7.7); NEUTROPHILS % 56.6 % (36.0-66.0); PLATELET COUNT, AUTOMATED 118 k/mm3 (150-450); RED CELL DISTRIBUTION WIDTH 13.5 % (11.5-14.5); WHITE BLOOD COUNT 5.2 K/mm3 (4.0-10.0)
[2017-05-16 17:23] LABS: INR 0.97
--- NOTE | 2017-05-16 17:24 | REP ---
Clinical: Chest pain . Comparison: 03/28/2006 . Findings: The mediastinum and cardiac silhouette are stable and within normal limits for portable technique. The lung pradhan are clear without acute consolidation, effusion, or pneumothorax. Skeletal structures are intact. Impression: No acute cardiopulmonary process appreciated. Signed by Walker Malin MD 05/16/2017 05:15 P
[2017-05-16 17:35] LABS: ALBUMIN 3.5 GM/DL (3.2-5.2); ALBUMIN/GLOBULIN RATIO 0.97 (1.00-1.93); ALKALINE PHOSPHATASE 83 U/L (45-117); ALT/SGPT 20 U/L (12-78); ANION GAP 8 MEQ/L (8-16); AST/SGOT 15 U/L (15-37); BILIRUBIN,DIRECT < 0.1 MG/DL (0.0-0.2); BLOOD UREA NITROGEN 30 MG/DL (7-18); CALCIUM LEVEL 9.2 MG/DL (8.8-10.2); CARBON DIOXIDE LEVEL 27 MEQ/L (21-32); CHLORIDE LEVEL 108 MEQ/L (98-107); CREATININE FOR GFR 1.23 MG/DL (0.55-1.02); GLOMERULAR FILTRATION RATE 45.2 (>39); GLUCOSE, FASTING 129 MG/DL (83-110); POTASSIUM SERUM 4.1 MEQ/L (3.5-5.1); SODIUM LEVEL 143 MEQ/L (136-145); TOTAL PROTEIN 7.1 GM/DL (6.4-8.2)
[2017-05-16 17:38] LABS: BILIRUBIN,TOTAL 0.2 MG/DL (0.2-1.0)
--- NOTE | 2017-05-16 19:39 | ECGEPIP ---
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
[2017-05-16 23:31] VITALS: BP 127/58
--- NOTE | 2017-05-17 06:04 | ECGEPIP ---
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
== END 2017-05-16 23:36 | disposition home or self-care (01) ==
LOC: M ED 16:31 → EDBD 16:31 → M ED 23:36
DX: R07.9 Chest pain, unspecified (principal); I10 Essential (primary) hypertension; Z86.73 Personal history of transient ischemic attack (TIA), and cerebral infarction without residual deficits

== ENCOUNTER 2018-11-18 00:18 | Emergency (ER) | payer MEDICARE, MEDICAID ==
[~2018-11-18] VITALS: Ht 162.6 cm; Wt 124.1 kg
[~2018-11-18 00:18] MED LIST changes: -TRAZ-136 PO; +TRAZ-163 PO
[2018-11-18 01:14] LABS: BASO # 0.1 10^3/uL (0.0-0.2); BASO % 0.6 % (0.0-1.0); EOS # 0.2 10^3/uL (0.0-0.50); EOS % 2.5 % (0.0-3.0); HEMATOCRIT 38.1 % (36.0-47.0); HEMOGLOBIN 11.9 g/dl (12.0-15.5); LYMPH # 2.5 10^3/uL (1.5-4.5); LYMPH % 27.7 % (24.0-44.0); MEAN CORPUSCULAR HEMOGLOBIN 26.1 pg (27.0-33.0); MEAN CORPUSCULAR HGB CONC 31.2 g/dl (32.0-36.5); MEAN CORPUSCULAR VOLUME 83.6 fl (80.0-96.0); MONO # 0.8 10^3/uL (0.0-0.8); MONO % 8.6 % (0.0-5.0); NEUTROPHILS # 5.3 10^3/uL (1.8-7.7); RED BLOOD COUNT 4.56 10^6/uL (4.00-5.40); WHITE BLOOD COUNT 8.9 10^3/uL (4.0-10.0)
[2018-11-18 01:23] LABS: INR 1.25; PARTIAL THROMBOPLASTIN TIME 27.2 SECONDS (25.4-37.6); PROTHROMBIN TIME 15.9 SECONDS (12.1-14.4)
[2018-11-18 01:32] LABS: PLATELET COUNT, AUTOMATED 35 10^3/uL (150-450)
[2018-11-18 01:38] LABS: BLOOD UREA NITROGEN 24 MG/DL (7-18); CALCIUM LEVEL 8.8 MG/DL (8.8-10.2); CARBON DIOXIDE LEVEL 34 MEQ/L (21-32); CHLORIDE LEVEL 104 MEQ/L (98-107); CPK CREATINE PHOSPHOKINASE 91 U/L (26-192); CREATININE FOR GFR 1.33 MG/DL (0.55-1.30); GLOMERULAR FILTRATION RATE 41.2 (>39); GLUCOSE, FASTING 230 MG/DL (70-100); MB/CK RELATIVE INDEX 1.98 (< OR =4); POTASSIUM SERUM 3.9 MEQ/L (3.5-5.1); SODIUM LEVEL 141 MEQ/L (136-145); TROPONIN I < 0.02 NG/ML (< 0.10)
[2018-11-18] MEDS ORDERED: ISOVUE-370 76% 125ML VIAL (Q9967 PER ML) As Ordered ONE (01:56)
[2018-11-18 02:31] LABS: INFLUENZA A AMPLIFICATION NEGATIVE (NEGATIVE); INFLUENZA B AMPLIFICATION NEGATIVE (NEGATIVE)
--- NOTE | 2018-11-18 03:22 | REPVR ---
EXAM: CT Angiography Chest With Contrast EXAM DATE/TIME: 11/18/2018 12:56 AM CLINICAL HISTORY: 78 years old, female; Pain; Chest pain; Type not specified; Additional info: SOB, dvt TECHNIQUE: Axial computed tomographic angiography images of the chest with intravenous contrast using CT angiography protocol. All CT scans at this facility use at least one of these dose optimization techniques: automated exposure control; mA and/or kV adjustment per patient size (includes targeted exams where dose is matched to clinical indication); or iterative reconstruction. Coronal and sagittal reformatted images were created and reviewed. MIP reconstructed images were created and reviewed. CONTRAST: Contrast Material: 75 ml of iso; Contrast Route: ac COMPARISON: CR PORTABLE CHEST X-RAY 05/16/2017 5:15 PM FINDINGS: Pulmonary arteries: Main pulmonary artery is enlarged measuring 3.1 cm representing pulmonary hypertension. No evidence of pulmonary emboli. Aorta: Filling defects secondary to phase of contrast versus ulcers in the descending thoracic aorta. No aortic aneurysm. No aortic dissection. Lungs: Bilateral diffuse ground glass opacities linear areas of atelectasis versus scarring in the right middle lobe and right lower lobe. No large focal consolidation. Peripheral increased interstitial markings likely chronic interstitial lung disease. Pleural space: Normal. No pneumothorax. No pleural effusion. Heart: Normal. No cardiomegaly. No pericardial effusion. Upper abdomen: Eventration of right hemidiaphragm. Lymph nodes: Subcentimeter small mediastinal lymph nodes Bones/joints: Degenerative changes. Soft tissues: Unremarkable. Other findings: Atherosclerosis. Bovine arch. IMPRESSION: No evidence of pulmonary embolism. Bilateral diffuse ground glass opacities linear areas of atelectasis versus scarring in the right middle lobe and right lower lobe. No large focal consolidation. Peripheral increased interstitial markings likely chronic interstitial lung disease. Electronically signed by: Orly Nunez On 11/18/2018 03:22:27 AM
[2018-11-18 05:05] VITALS: BP 165/84
--- NOTE | 2018-11-18 05:41 | ECGEPIP ---
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
== END 2018-11-18 05:17 | disposition home or self-care (01) ==
LOC: M ED 00:18
DX: D69.3 Immune thrombocytopenic purpura (principal); R06.02 Shortness of breath; Z86.718 Personal history of other venous thrombosis and embolism; Z91.048 Other nonmedicinal substance allergy status; Z79.899 Other long term (current) drug therapy; Z79.01 Long term (current) use of anticoagulants; Z79.82 Long term (current) use of aspirin
CPT/HCPCS: 71275; 80048; 82550; 82553; 84484; 85025; 85049; 85055; 85610; 85730; 87502; 93005; 99284; Q9967

== ENCOUNTER → 2018-12-19 | Outpatient (CLI) | payer MEDICARE, MEDICAID ==
[~2018-12-19] MED LIST changes: +ACET650T15 PO; -ASPI1TAB PO; +ASPI81TA26 PO; +AZO-95TA3 PO; +CLOT1CRE27 TOP; -CLOTR1CR TOP; -DULO30CA PO; +DULO30CA9 PO; +GLIP5TAB8 PO; +HYDR25TAB PO; +LOPR1TAB7 PO; +MAGN500T12 PO; +METF-414 PO; +PRAM1TAB7 PO; +VENL150C43 PO; +VENL37.52 PO
--- NOTE | 2018-12-19 16:40 | REP ---
Left lower extremity deep vein duplex ultrasound: The patient has history of prior left lower extremity deep vein thrombus. The deep veins demonstrate normal compression, normal Doppler color flow and normal Doppler waveforms with respiration and augmentation from the popliteal vein to the common femoral vein. Mild intimal irregularity is identified in the distal femoral vein and popliteal vein, possibly chronic organized residual from the previous thrombus. Impression: There is no occlusive deep vein thrombus. There is mild intimal irregularity in the distal femoral vein and popliteal vein, possibly chronic organized fibrous residual from the prior thrombus. Electronically Signed by Christopher Ramirez MD 12/19/2018 04:31 P
== END ==
LOC: M RAD 15:46
PROVIDERS: ATTEND Internal Medicine Hematology & Oncology
DX: D69.6 Thrombocytopenia, unspecified (principal); Z86.718 Personal history of other venous thrombosis and embolism

== ENCOUNTER → 2019-06-13 | Outpatient (REF) | payer MEDICARE, MEDICAID ==
[~2019-06-13] MED LIST changes: -DULO1CAP3 PO; +DULO1CAP6 PO; +ELIQ2.5T PO; +VICT18IN SC
[2019-06-13 18:18] LABS: PERCENT SATURATION 16.9 % (13.2-45.0)
[2019-06-13 18:54] LABS: FOLATE 10.2 NG/ML
== END ==
LOC: M LAB REF 17:12
PROVIDERS: ATTEND Internal Medicine Nephrology
DX: D64.9 Anemia, unspecified (principal)

== ENCOUNTER → 2020-12-22 | Outpatient (REF) | payer MEDICARE, MEDICAID ==
[~2020-12-22] MED LIST changes: +ATOR40TA75 PO; +HYDR-3490 PO; -HYDR25TAB PO; +NEUR100C PO; -TRAZ-163 PO; +TRAZ-257 PO; -TRAZ10TA PO; +TRAZ1TAB12 PO
== END ==
LOC: M LAB REF 16:42
PROVIDERS: ATTEND Internal Medicine Nephrology
DX: N39.0 Urinary tract infection, site not specified (principal)

== ENCOUNTER → 2021-03-23 | Outpatient (REF) | payer MEDICARE, MEDICAID | LOC: M LAB REF 17:09 | PROVIDERS: ATTEND Internal Medicine Nephrology | DX: N18.32 Chronic kidney disease, stage 3b (principal) ==

== ENCOUNTER 2021-11-18 04:22 | Emergency (ER) | payer MEDICARE, MEDICAID ==
[~2021-11-18] VITALS: Ht 162.6 cm; Wt 119.5 kg
[~2021-11-18 04:22] MED LIST changes: -CYMB60CA3 PO; +CYMB60CA4 PO
[2021-11-18] MEDS ORDERED: TRAZ-252 PO (04:50)
[2021-11-18 05:35] LABS: BASO # 0.1 10^3/uL (0.0-0.2); BASO % 0.6 % (0.0-1.0); CALCIUM LEVEL 9.7 MG/DL (8.8-10.2); CREATININE FOR GFR 1.18 MG/DL (0.55-1.30); EOS # 0.3 10^3/uL (0.0-0.5); GLOMERULAR FILTRATION RATE 46.9 (>32); HEMATOCRIT 41.7 % (36.0-47.0); HEMOGLOBIN 12.3 g/dl (12.0-15.5); LYMPH # 2.2 10^3/uL (1.5-5.0); LYMPH % 26.4 % (24.0-44.0); MEAN CORPUSCULAR HEMOGLOBIN 24.6 pg (27.0-33.0); MEAN CORPUSCULAR HGB CONC 29.5 g/dl (32.0-36.5); MEAN CORPUSCULAR VOLUME 83.4 fl (80.0-96.0); MONO # 0.9 10^3/uL (0.0-0.8); MONO % 10.6 % (2.0-8.0); PLATELET COUNT, AUTOMATED 218 10^3/uL (150-450); POTASSIUM SERUM 4.6 MEQ/L (3.5-5.1); WHITE BLOOD COUNT 8.4 10^3/uL (4.0-10.0)
[2021-11-18] MEDS ORDERED: DYAZIDE 37.5/25 CAP (TRIAM/HCTZ) PO ONE (06:00)
[2021-11-18] MEDS ORDERED: METOPROLOL TARTRATE 100MG TAB PO ONE (06:05)
[2021-11-18 06:13] LABS: HEMOGLOBIN A1c 6.9 %
[2021-11-18] MEDS ORDERED: AMLO25TA PO (07:45)
[2021-11-18 08:14] VITALS: BP 162/71
== END 2021-11-18 08:35 | disposition home or self-care (01) ==
LOC: M ED 04:22
DX: I12.9 Hypertensive chronic kidney disease with stage 1 through stage 4 chronic kidney disease, or unspecified chronic kidney disease (principal); N18.30 Chronic kidney disease, stage 3 unspecified; E11.9 Type 2 diabetes mellitus without complications; I48.91 Unspecified atrial fibrillation; I25.10 Atherosclerotic heart disease of native coronary artery without angina pectoris; G25.81 Restless legs syndrome; E78.00 Pure hypercholesterolemia, unspecified; F33.9 Major depressive disorder, recurrent, unspecified; D69.3 Immune thrombocytopenic purpura; E66.9 Obesity, unspecified; Z79.899 Other long term (current) drug therapy; Z79.84 Long term (current) use of oral hypoglycemic drugs